=== PATIENT | male | born 1975 | race Caucasian/White ===

== ENCOUNTER 2017-08-23 22:46 | Emergency (ER) | payer OTHER ==
[2017-08-23] MEDS ORDERED: DiphenhydrAMINE 50 mg/ml Inj IVP STA (23:27)
[2017-08-23] MEDS ORDERED: Sodium Chloride 0.9% 1,000 ML IV ONE (23:27)
[2017-08-23] MEDS ORDERED: Sodium Chloride 0.9% 1,000 ML ONE (23:31)
[2017-08-23] MEDS ORDERED: DiphenhydrAMINE 50 mg/ml Inj ONE (23:31)
[2017-08-23 23:34] LABS: BASO % 0.6 % (0.0-2.0); EOS # 0.2 K/uL (0.0-0.7); EOS % 3.3 % (0.0-4.0); HEMATOCRIT 44.6 % (35.0-51.0); LYMPH # 3.5 K/uL (1.0-4.3); LYMPH % 50.1 % (20.0-40.0); MEAN CELL VOLUME 87.3 fL (80.0-94.0); MEAN CORPUSCULAR HEMOGLOBIN 30.5 pg (27.0-31.0); MEAN CORPUSCULAR HGB CONC 34.9 g/dL (33.0-37.0); MEAN PLATELET VOLUME 9.2 fL (7.2-11.7); MONO # 0.4 K/uL (0.0-0.8); MONO % 5.6 % (0.0-10.0); NRBC % 0.1 % (0.0-2.0); RED CELL DISTRIBUTION WIDTH 13.4 % (11.5-14.5)
[2017-08-23 23:41] LABS: CHLORIDE 101 mmol/L (98-107)
[2017-08-23 23:42] LABS: POTASSIUM 3.7 mmol/L (3.6-5.2); SODIUM 134 mmol/L (132-148)
[2017-08-23 23:44] LABS: ALB/GLOB RATIO 1.2 (1.0-2.1); ALKALINE PHOSPHATASE 87 U/L (38-126); AST/SGOT 41 U/L (17-59); BILIRUBIN,TOTAL 0.5 mg/dL (0.2-1.3); BLOOD UREA NITROGEN 18 mg/dL (9-20); CARBON DIOXIDE 21 mmol/L (22-30); GFR AFRICAN-AMERICAN > 60; TOTAL PROTEIN 7.2 g/dL (6.3-8.3)
[2017-08-23 23:45] LABS: ALT/SGPT 71 U/L (21-72); GLUCOSE,RANDOM 141 mg/dL (75-110)
--- NOTE | 2017-08-24 00:36 | C.PDOC ---
Time Seen by Provider: 08/23/17 23:21 Chief Complaint (Nursing): Allergic Reaction History Per: Patient Onset/Duration Of Symptoms: Hrs (this evening) Current Symptoms Are (Timing): Still Present Possible Cause: Food (?) Associated Symptoms: Skin Rash, Trouble Swallowing, Itching Home/EMS Treatment: None Severity: Moderate Additional History Per: Prior Records Past Medical History Reviewed: Historical Data, Nursing Documentation, Vital Signs Vital Signs: Last Vital Signs Temp 97.7 F 08/23/17 22:55 Pulse 69 08/24/17 00:28 Resp 15 08/24/17 00:28 BP 131/85 08/24/17 00:28 Pulse Ox 97 08/24/17 00:38 - Medical History PMH: No Chronic Diseases Surgical History: Appendectomy - [facility] Procedures OTHER LOCAL DESTRUC SKIN (01/18/14) Family History: States: Unknown Family Hx - Social History Hx Tobacco Use: No Hx Alcohol Use: No Hx Substance Use: No - Immunization History Hx Tetanus Toxoid Vaccination: No Hx Influenza Vaccination: No Hx Pneumococcal Vaccination: No Review Of Systems Except As Marked, All Systems Reviewed And Found Negative. Constitutional: Negative for: Fever ENT: Positive for: Throat Pain, Throat Swelling Cardiovascular: Negative for: Chest Pain Respiratory: Negative for: Shortness of Breath Gastrointestinal: Negative for: Vomiting, Abdominal Pain Musculoskeletal: Negative for: Neck Pain Skin: Negative for: Rash Neurological: Negative for: Weakness, Numbness Physical Exam - Physical Exam Appears: Non-toxic, No Acute Distress Skin: Normal Color, Warm, Dry, Rash (urticaria) Head: Atraumatic, Normacephalic Eye(s): bilateral: PERRL, EOMI Oral Mucosa: Moist, No Drooling, No Trismus Tongue: Normal Appearing Throat: Other (Uvula is edematous) Neck: Normal ROM, Supple Cardiovascular: Rhythm Regular Respiratory: Normal Breath Sounds, No Accessory Muscle Use Gastrointestinal/Abdominal: Soft, No Tenderness Extremity: Normal ROM, No Pedal Edema Neurological/Psych: Oriented x3, Normal Motor, Normal Sensation ED Course And Treatment - Laboratory Results Result Diagrams: 08/23/17 23:30 08/23/17 23:30 Lab Interpretation: No Acute Changes O2 Sat by Pulse Oximetry: 97 Pulse Ox Interpretation: Normal Progress - Interventions Interventions:: Observation, Intravenous fluid - Medications Administered Intravenous: Antihistamine (H-1), Corticosteroid, H-2 raisa - Data Reviewed Data Reviewed: Lab, Old records - Patient Status Patient status: Partially improved - Continuity of Care Discussed patient case with:: Patient, ED Nurse Disposition - Disposition Disposition Time: 00:55 Condition: FAIR - Clinical Impression Clinical Impression: Allergic reaction Physician Patient Turnover Patient Signed Over To: Fide Archibald Handoff Comments: to reassess/dispo pt after observation.
[2017-08-24 01:49] VITALS: BP 128/75; PULSE 77; RESP 17; TEMP 98; O2SAT 98
== END 2017-08-24 01:57 | disposition home or self-care (01) ==
LOC: C.ER 22:46
DX: L50.0 Allergic urticaria (principal)
CPT/HCPCS: 80053; 85025; 96361; 96374; 96375; 99285; J1200; J2930; J7040

== ENCOUNTER 2018-11-19 00:40 | Inpatient (IN) | payer BC, OTHER ==
[2018-11-19] MEDS ORDERED: Sodium Chloride 0.9% 1,000 ML IV ONE (01:16)
[2018-11-19] MEDS ORDERED: DiphenhydrAMINE 50 mg/ml Inj IVP STA (01:16)
--- NOTE | 2018-11-19 01:16 | C.PDOC ---
History Of Present Illness 43 year old male presents to the ED for evaluation of allergic reaction. Patient reports he drank some chocolate shake with cashews in it, patient does not have a known allergy to cashews. Patient c/o diffuse urticarial rash, swollen face and slight swollen tongue with voice changes. Patient denies fever, chills, nausea, vomit, diarrhea, weakness, numbness. Time Seen by Provider: 11/19/18 01:16 Chief Complaint (Nursing): Allergic Reaction History Per: Patient History/Exam Limitations: no limitations Onset/Duration Of Symptoms: Hrs Current Symptoms Are (Timing): Still Present Context: Food Possible Cause: Food Associated Symptoms: Skin Rash, Swelling, Itching Recent travel outside of the [place]: No Additional History Per: Patient Past Medical History Reviewed: Historical Data, Nursing Documentation, Vital Signs Vital Signs: Last Vital Signs Temp 98.1 F 11/19/18 01:03 Pulse 84 11/19/18 01:03 Resp 20 11/19/18 01:03 BP 127/83 11/19/18 01:03 Pulse Ox 96 11/19/18 01:03 - Medical History PMH: No Chronic Diseases Surgical History: Appendectomy - [facility] Procedures OTHER LOCAL DESTRUC SKIN (01/18/14) Family History: States: Unknown Family Hx - Social History Hx Tobacco Use: No Hx Alcohol Use: No Hx Substance Use: No - Immunization History Hx Tetanus Toxoid Vaccination: No Hx Influenza Vaccination: No Hx Pneumococcal Vaccination: No Review Of Systems Constitutional: Negative for: Fever, Chills ENT: Positive for: Mouth Swelling, Throat Swelling Cardiovascular: Negative for: Chest Pain, Palpitations Respiratory: Negative for: Cough, Shortness of Breath Gastrointestinal: Negative for: Nausea, Vomiting, Abdominal Pain Skin: Positive for: Rash Neurological: Negative for: Weakness, Numbness Physical Exam - Physical Exam Appears: Non-toxic, No Acute Distress Skin: Warm, Dry, Rash (diffuse urticarial ) Head: Normacephalic Eye(s): bilateral: Normal Inspection Oral Mucosa: Moist Tongue: Swelling (slight ) Throat: No Erythema, No Exudate, No Drooling, Other (edematous uvula) Neck: Supple Chest: Symmetrical Cardiovascular: Rhythm Regular Respiratory: No Rales, No Rhonchi, No Wheezing Gastrointestinal/Abdominal: Soft, No Tenderness, No Guarding, No Rebound Extremity: Bilateral: Atraumatic, Normal Color And Temperature, Normal ROM Neurological/Psych: Oriented x3, Normal Speech, Normal Cognition Gait: Steady ED Course And Treatment ECG: Interpreted By Me, Viewed By Me ECG Rhythm: Nonspecific Changes O2 Sat by Pulse Oximetry: 96 (ON RA) Pulse Ox Interpretation: Normal Progress Note: Plan: - Benadryl 25 mg IVP. - Pepcid 20 mg IVP. - Solumedrol 125 mg IVP. - IV fluids. 2:24 AM pt feels better. Voice improved. Continuing to monnitor. 4:27AM uvula still edematous. will admit. spoke with dr mitchell-icu- as per him pt stable to go to telemetry for pulse ox monitoring Critical Care Time - Critical Care Note Total Time (in mins): 30 Documented critical care: time excludes all time spent performing seperately billable procedures. Disposition Discussed With Dr.: Delia Lang Comment: accepted the pt on his service and took over the care at 4:40 AM Doctor Will See Patient In The: Hospital Counseled Patient/Family Regarding: Studies Performed, Diagnosis - Disposition Disposition: HOSPITALIZED Disposition Time: 01:16 Condition: GUARDED Forms: [facility] (Bengali) - Clinical Impression Clinical Impression: Acute allergic reaction - Scribe Statement The provider has reviewed the documentation as recorded by the Scribe Tyshawn Freedman All medical record entries made by the Scribe were at my direction and personally dictated by me. I have reviewed the chart and agree that the record accurately reflects my personal performance of the history, physical exam, medical decision making, and the department course for this patient. I have also personally directed, reviewed, and agree with the discharge instructions and disposition. Decision To Admit - Pt Status Changed To: Hospital Disposition Of: Observation - . Bed Request Type: Telemetry Admitting Physician: Delia Lang Patient Diagnosis: Acute allergic reaction
[2018-11-19] MEDS ORDERED: DiphenhydrAMINE 50 mg/ml Inj ONE ×3 (01:18→14:43)
[2018-11-19] MEDS: Albuterol-Ipratrop 3 mg / 0.5 (3 ml) UD IH SCH ×3 (04:45→05:15)
[2018-11-19] MEDS ORDERED: Sodium Chloride 0.9% 1,000 ML IV SCH (04:45)
[2018-11-19] MEDS ORDERED: Dextrose 5%/0.45% NS 1,000 ML IV ONE (04:48)
[2018-11-19] MEDS: Dextrose 5%/0.45% NS 1,000 ML IV SCH ×3 (04:49→13:10)
[2018-11-19 05:04] LABS: BASO # 0.2 K/uL (0.0-0.2); BASO % 2.9 % (0.0-2.0); EOS # 0.2 K/uL (0.0-0.7); EOS % 2.1 % (0.0-4.0); HEMOGLOBIN 16.2 g/dL (12.0-18.0); LYMPH # 2.9 K/uL (1.0-4.3); MEAN CELL VOLUME 88.7 fL (80.0-94.0); MEAN CORPUSCULAR HEMOGLOBIN 30.3 pg (27.0-31.0); MEAN CORPUSCULAR HGB CONC 34.2 g/dL (33.0-37.0); MEAN PLATELET VOLUME 10.2 fL (7.2-11.7); MONO # 0.5 K/uL (0.0-0.8); MONO % 6.1 % (0.0-10.0); NEUT # 3.7 K/uL (1.8-7.0); NEUT % 49.9 % (50.0-75.0); NRBC % 0.1 % (0.0-2.0); RBC 5.34 Mil/uL (4.40-5.90); RED CELL DISTRIBUTION WIDTH 13.3 % (11.5-14.5); WHITE BLOOD COUNT 7.4 K/uL (4.8-10.8)
[2018-11-19] MEDS ORDERED: Albuterol 0.083% Inhal Sol (2.5 mg/3 mL) UD ONE (05:09)
[2018-11-19 05:15] LABS: BLOOD UREA NITROGEN 20 mg/dL (9-20); CALCIUM 8.8 mg/dl (8.6-10.4); GFR NON-AFRICAN AMERICAN > 60
[2018-11-19] MEDS ORDERED: MethylPREDNISolone 40 mg Vial ONE (08:56)
[2018-11-19] MEDS: MethylPREDNISolone 40 mg Vial IVP SCH ×2 (09:00→17:24)
[2018-11-19] MEDS ORDERED: DiphenhydrAMINE 50 mg/ml Inj IVP SCH ×2 (09:30→13:45)
[2018-11-19] MEDS ORDERED: raNITIdine HCl 150 mg/10 ml Soln Cup PO SCH (10:00)
--- NOTE | 2018-11-19 12:26 | CP.PCM.HP ---
History of Present Illness - History of Present Illness History of Present Illness: 43 year old male presents to the ED for evaluation of allergic reaction. Patient reports he drank some chocolate shake with cashews in it, patient does not have a known allergy to cashews. Patient c/o diffuse urticarial rash, swollen face and slight swollen tongue with voice changes. Patient denies fever, chills, nausea, vomit, diarrhea, weakness, numbness. Present on Admission - Present on Admission Any Indicators Present on Admission: No Review of Systems - Review of Systems All systems: reviewed and no additional remarkable complaints except (Swelling of the lips and the throat with mild difficulty in swallowing) Past Patient History - Past Social History Smoking Status: Never Smoked - MUSCULOSKELETAL/RHEUMATOLOGICAL Hx Falls: No - PSYCHIATRIC Hx Substance Use: No - SURGICAL HISTORY Hx Appendectomy: Yes - ANESTHESIA Hx Anesthesia: Yes Meds Allergies/Adverse Reactions: Allergies Allergy/AdvReac Type Severity Reaction Status Date / Time cashew nut Allergy ANGIOEDEMA Verified 11/19/18 09:36 gisele Allergy ITCHING Verified 11/19/18 09:36 Physical Exam - Constitutional Appears: Well - Head Exam Head Exam: ATRAUMATIC, NORMAL INSPECTION, NORMOCEPHALIC - Eye Exam Eye Exam: Periorbital swelling, Periorbital tenderness - ENT Exam ENT Exam: Mucous Membranes Dry (there is swelling of the upper and lower lips the pharynx and the uvula appears swollen), Mucous Membranes Moist - Neck Exam Neck exam: Positive for: Full Rom, Normal Inspection - Respiratory Exam Respiratory Exam: Clear to Auscultation Bilateral - Cardiovascular Exam Cardiovascular Exam: REGULAR RHYTHM - GI/Abdominal Exam GI & Abdominal Exam: Normal Bowel Sounds, Soft. absent: Tenderness - Neurological Exam Neurological exam: Alert, CN II-XII Intact, Normal Gait, Oriented x3, Reflexes Normal - Psychiatric Exam Psychiatric exam: Normal Affect Results - Vital Signs Recent Vital Signs: Last Vital Signs Temp 98.1 F 11/19/18 06:20 Pulse 100 H 11/19/18 10:24 Resp 18 11/19/18 10:24 BP 127/73 11/19/18 10:24 Pulse Ox 96 11/19/18 10:24 - Labs Result Diagrams: 11/19/18 05:00 11/19/18 05:00 Labs: Laboratory Results - last 24 hr 11/19/18 11/19/18 05:00 05:00 WBC 7.4 RBC 5.34 Hgb 16.2 Hct 47.3 MCV 88.7 MCH 30.3 MCHC 34.2 RDW 13.3 Plt Count 199 MPV 10.2 Neut % (Auto) 49.9 L Lymph % (Auto) 39.0 [place] % (Auto) 6.1 Eos % (Auto) 2.1 Baso % (Auto) 2.9 H Neut # (Auto) 3.7 Lymph # (Auto) 2.9 [place] # (Auto) 0.5 Eos # (Auto) 0.2 Baso # (Auto) 0.2 Sodium 138 Potassium 3.7 Chloride 103 Carbon Dioxide 24 Anion Gap 16 BUN 20 Creatinine 0.9 Est GFR ( Amer) > 60 Est GFR (Non-Af Amer) > 60 Random Glucose 87 D Calcium 8.8 Assessment & Plan (1) [id number] Status: Acute Comment: IV fluids, steroids and Benadryl and Zantac (2) Acute allergic reaction Status: Acute
[2018-11-20] MEDS: Dextrose 5%/0.45% NS 1,000 ML IV SCH ×2 (00:19→06:49)
[2018-11-20] MEDS: MethylPREDNISolone 40 mg Vial IVP SCH ×2 (00:31→09:49)
[2018-11-20] MEDS ORDERED: Enoxaparin 40 mg Syringe SC SCH (10:00)
--- NOTE | 2018-11-20 12:06 | CP.PCM.DIS ---
Provider - Provider Date of Admission: 11/19/18 04:39 Attending physician: Delia Lang MD Time Spent in preparation of Discharge (in minutes): 32 Diagnosis - Discharge Diagnosis (1) [id number] Status: Acute (2) Acute allergic reaction Status: Acute Hospital Course - Lab Results Lab Results: Most Recent Lab Values WBC 7.4 K/uL (4.8-10.8) 11/19/18 05:00 RBC 5.34 Mil/uL (4.40-5.90) 11/19/18 05:00 Hgb 16.2 g/dL (12.0-18.0) 11/19/18 05:00 Hct 47.3 % (35.0-51.0) 11/19/18 05:00 MCV 88.7 fL (80.0-94.0) 11/19/18 05:00 MCH 30.3 pg (27.0-31.0) 11/19/18 05:00 MCHC 34.2 g/dL (33.0-37.0) 11/19/18 05:00 RDW 13.3 % (11.5-14.5) 11/19/18 05:00 Plt Count 199 K/uL (130-400) 11/19/18 05:00 MPV 10.2 fL (7.2-11.7) 11/19/18 05:00 Neut % (Auto) 49.9 % (50.0-75.0) L 11/19/18 05:00 Lymph % (Auto) 39.0 % (20.0-40.0) 11/19/18 05:00 [place] % (Auto) 6.1 % (0.0-10.0) 11/19/18 05:00 Eos % (Auto) 2.1 % (0.0-4.0) 11/19/18 05:00 Baso % (Auto) 2.9 % (0.0-2.0) H 11/19/18 05:00 Neut # (Auto) 3.7 K/uL (1.8-7.0) 11/19/18 05:00 Lymph # (Auto) 2.9 K/uL (1.0-4.3) 11/19/18 05:00 [place] # (Auto) 0.5 K/uL (0.0-0.8) 11/19/18 05:00 Eos # (Auto) 0.2 K/uL (0.0-0.7) 11/19/18 05:00 Baso # (Auto) 0.2 K/uL (0.0-0.2) 11/19/18 05:00 Sodium 138 mmol/L (132-148) 11/19/18 05:00 Potassium 3.7 mmol/L (3.6-5.2) 11/19/18 05:00 Chloride 103 mmol/L (98-107) 11/19/18 05:00 Carbon Dioxide 24 mmol/L (22-30) 11/19/18 05:00 Anion Gap 16 (10-20) 11/19/18 05:00 BUN 20 mg/dL (9-20) 11/19/18 05:00 Creatinine 0.9 mg/dL (0.8-1.5) 11/19/18 05:00 Est GFR ( Amer) > 60 11/19/18 05:00 Est GFR (Non-Af Amer) > 60 11/19/18 05:00 Random Glucose 87 mg/dL (75-110) D 11/19/18 05:00 Calcium 8.8 mg/dl (8.6-10.4) 11/19/18 05:00 - Hospital Course Hospital Course: 43 year old male presents to the ED for evaluation of allergic reaction. Patient reports he drank some chocolate shake with cashews in it, patient does not have a known allergy to cashews. Patient c/o diffuse urticarial rash, swollen face and slight swollen tongue with voice changes. Patient denies fever, chills, nausea, vomit, diarrhea, weakness, numbness. Patient was given Benadryl IV steroids and Zantac by mouth patient improved on above therapy decrease in swelling of the lips and pharynx. Patient was able to swallow food and breathe easy and walk around in the hallway without any diff iculty. Patient currently stable will discharge the patient on when necessary Benadryl and was advised to follow with an endocrinologist. Discharge Exam - Head Exam Head Exam: ATRAUMATIC, NORMAL INSPECTION, NORMOCEPHALIC Discharge Plan - Follow Up Plan Condition: GUARDED Disposition: HOME/ ROUTINE
[2018-11-20] MEDS ORDERED: Influenza Vaccine 60 mcg/0.5 mL SYR (4YR UP) IM ONE (12:45)
[2018-11-20 16:01] VITALS: BP 127/68; PULSE 90; RESP 20; TEMP 98.3; O2SAT 93
== END 2018-11-20 17:22 | disposition home or self-care (01) | DRG 916 ==
LOC: C.ER 00:40 → C.9E 04:39 → C.6T 17:00
PROVIDERS: ADMIT Internal Medicine Cardiovascular Disease; ATTEND Internal Medicine Cardiovascular Disease
DX: T78.3XXA Angioneurotic edema, initial encounter (principal); L50.0 Allergic urticaria; Z90.49 Acquired absence of other specified parts of digestive tract